=== PATIENT | female | born 1975 ===

== ENCOUNTER 2017-08-23 10:01 | Emergency (ER) | payer OTHER ==
[2017-08-23 10:01] VITALS: BMI 28.7
--- NOTE | 2017-08-23 11:25 | C.PDOC ---
History Of Present Illness 42 yr old female presents to the ER for evaluation of right elbow pain for the past 4 months. Patient states the pain has been gradually worsening, its localized and worse with movement. 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 Denies trauma, injury, neck pain, shoulder pain, back pain, weakness or numbness. Time Seen by Provider: 08/23/17 11:20 Chief Complaint (Nursing): Upper Extremity Problem/Injury History Per: Patient History/Exam Limitations: no limitations Onset/Duration Of Symptoms: Gradual (4 months) Current Symptoms Are (Timing): Still Present Past Medical History Reviewed: Historical Data, Nursing Documentation, Vital Signs Vital Signs: Last Vital Signs Temp 97.7 F 08/23/17 10:14 Pulse 72 08/23/17 10:14 Resp 20 08/23/17 10:14 BP 109/76 08/23/17 10:14 Pulse Ox 100 08/23/17 11:29 - [facility] Procedures APPLICATION OF SPLINT (01/02/15) Family History: States: No Known Family Hx - Social History Hx Tobacco Use: Yes Hx Alcohol Use: Yes Hx Substance Use: No - Immunization History Hx Tetanus Toxoid Vaccination: Yes Hx Influenza Vaccination: Yes Hx Pneumococcal Vaccination: Yes Review Of Systems Except As Marked, All Systems Reviewed And Found Negative. Musculoskeletal: Positive for: Other ((+) right elbow pain). Negative for: Neck Pain, Shoulder Pain, Back Pain Neurological: Negative for: Weakness, Numbness Physical Exam - Physical Exam Appears: Non-toxic Skin: Warm, Dry, No Rash Extremity: Normal ROM (Right elbow), Tenderness (Right Elbow - tenderness over the lateral aspect), Capillary Refill (<2 secs), No Deformity, No Swelling Neurological/Psych: Oriented x3, Normal Speech, Normal Motor, Normal Sensation, Normal Reflexes Gait: Steady ED Course And Treatment O2 Sat by Pulse Oximetry: 100 (RA) Pulse Ox Interpretation: Normal - Other Rad X-Ray - Right Elbow X-Ray: Interpreted by Me, Viewed By Me Interpretation: (-) fx or dislocation Progress Note: On re-evaluation, pt is afebrile, hemodynamicaly stable. Non- toxic. Right elbow: exam c/w lateral tenderness r/o tendonitis. FAROM, no neurovascular deficits. Imaging review and appears normal. Pietro wrap applied to Right elbow. Pt advised. Ref. to F/u with PMD, rotho in 2-3 days for re- eavl. return if any new changes. Medical Decision Making Medical Decision Making: PLAN: * X-Ray - Right Elbow * Motrin PO Disposition Counseled Patient/Family Regarding: Studies Performed, Diagnosis, Need For Followup, Rx Given - Disposition Referrals: [facility] [Outside] Disposition: HOME/ ROUTINE Disposition Time: 11:28 Condition: STABLE Additional Instructions: PIETRO WRAP/ELBOW BRACE FOR 2-3 WEEKS TAKE MEDICATION PRESCRIBED FOLLOW UP WITH PMD/ORTHOPEDIST IN 2-3 DAYS FOR RE-EVALUATION. RETURN TO ED IF ANY WORSENING OR NEW CHANGES. Prescriptions: Ibuprofen [Motrin Tab] 600 mg PO Q6 #20 tab Methocarbamol [Robaxin] 500 mg PO TID #14 tab Instructions: Elbow Sprain (ED), Tennis Elbow (ED) Forms: Web Performance (Vincentian) Print Language: HUNGARIAN - Clinical Impression Clinical Impression: Elbow tendonitis - PA / [employer] / Resident Statement MD/DO has reviewed & agrees with the documentation as recorded. - Scribe Statement The provider has reviewed the documentation as recorded by the Scribe Jess Srinivasan All medical record entries made by the Chelitaibfabi were at my direction and personally dictated by me. I have reviewed the chart and agree that the record accurately reflects my personal performance of the history, physical exam, medical decision making, and the department course for this patient. I have also personally directed, reviewed, and agree with the discharge instructions and disposition.
[2017-08-23 12:55] VITALS: BP 127/85; PULSE 79; RESP 16; TEMP 98; O2SAT 98
--- NOTE | 2017-08-23 13:28 | RAD ---
PROCEDURE: Radiographs of the right elbow. HISTORY: injury COMPARISON: No prior. FINDINGS: BONES: Normal. No fracture. JOINTS: Normal. No osteoarthritis. SOFT TISSUES: Normal. JOINT EFFUSION: None. OTHER FINDINGS: None. IMPRESSION: Unremarkable radiographs of the right elbow.
== END 2017-08-23 12:54 | disposition home or self-care (01) ==
LOC: C.ER 10:01
DX: M77.8 Other enthesopathies, not elsewhere classified (principal)